=== PATIENT | male | born 1995 | race Caucasian/White ===

== ENCOUNTER 2017-06-27 12:26 | Emergency (ER) | payer OTHER ==
[~2017-06-27] VITALS: Ht 172.7 cm; Wt 63.6 kg
[2017-06-27] MEDS ORDERED: IBUPROFEN 800 MG TABLET PO ONE (13:45)
[2017-06-27 13:47] VITALS: BP 140/84
== END 2017-06-27 14:14 | disposition home or self-care (01) ==
LOC: EMS 12:29
DX: S93.402A Sprain of unspecified ligament of left ankle, initial encounter (principal); X58.XXXA Exposure to other specified factors, initial encounter; Y93.67 Activity, basketball; Y92.89 Other specified places as the place of occurrence of the external cause; Y99.8 Other external cause status
CPT/HCPCS: 29515; 99284